=== PATIENT | male | born 1990 | race Two or more races ===

== ENCOUNTER 2024-10-23 21:08 | Emergency (ER) | payer MEDICAID, SELFPAY ==
[2024-10-23 21:08] VITALS: BMI 29.3
[2024-10-23 21:43] VITALS: BP 146/82; PULSE 107; RESP 20; TEMP 36.9; O2SAT 98
--- NOTE | 2024-10-23 22:03 | EDNOTE_ITS ---
ED General RME/HPI General Chief complaint: Dental/Oral/Throat Stated complaint: HEADACHE, BACK PAIN, SORE THROAT Time Seen by Provider: 10/23/24 21:46 Arrival date/time: 10/23/24 21:08 RME / HPI RME / HPI narrative: 34-year-old male presents to the ED with a complaint of headache, body aches, sore throat, chills, cough, and nausea only. All symptoms x 1 day. He denies runny nose, nasal congestion, sinus pressure, ear pain, vomiting, diarrhea or abdominal pain. No others are ill with similar symptoms. Related Data Previous Rx's ?Medication ?Instructions ?Recorded ibuprofen 800 mg tablet 800 mg PO TID PRN pain #30 t abs 09/25/22 hydrocodone 5 mg-acetaminophen 325 1 tab PO TID #12 ta bs 09/26/22 mg tablet ondansetron 4 mg disintegrating 4 mg PO Q8H PRN nausea and 08/02/23 tablet vomiting #15 tabs albuterol sulfate 90 mcg/actuation 2 puff inhalation Q 4H PRN 10/24/24 aerosol inhaler shortness of breath or wheez ing #8.5 grams amoxicillin 875 mg-potassium 1 tab PO BID #20 tabs 01/10 clavulanate 125 mg tablet meloxicam 15 mg tablet 15 mg PO QDAY #10 tabs 10/24 Allergies Allergy/AdvReac Type Severity Reaction Status Date / Time No Known Allergies Allergy Verified 09/28/22 18:55 Course Orders Category Date Time Status Bedside COVID-19 Antigen Test NOW Care 10/23/24 22:05 Active Bedside Influenza A&B Antigen Test NOW Care 10/23/24 22:06 Completed XR chest 2V Stat Exams 10/23/24 22:05 Completed Strep A Rapid Stat Lab 10/23/24 22:18 Completed Albuterol/Ipratr Rt Sindy [Duoneb Rt Sindy] Med 10/24/24 00:19 Discontinued 3 ml INH X1 ONE Amoxicillin/Pot Clav 875 [Augmentin 875] Med 10/24/24 01:19 Discontinued 1 tab PO X1 ONE Dexamethasone Inj [Decadron Inj] Med 10/24/24 00:19 Discontinued 10 mg PO X1 ONE Ibuprofen Tab [Motrin Tab] Med 10/23/24 22:41 Discontinued 600 mg PO X1 ONE Reevaluation(s) Reevaluation #1: Patient is feeling a little better however he is now complaining of sinus pressure. Vital Signs Vital signs: Vital Signs Temperature 98.4 F 10/23/24 21:43 Pulse Rate 107 H 10/23/24 21:43 Respiratory Rate 20 10/23/24 21:43 Blood Pressure 146/82 H 10/23/24 21:43 Pulse Oximetry (%) 98 10/23/24 21:43 Oxygen Delivery Method Room Air 10/23/24 21:43 Discharge Plan Plan Patient Disposition: HOME (Self Care) Discharge Disposition comment: Stable and improved Prescriptions/Referrals Prescriptions/Med Rec: New amoxicillin-pot clavulanate 875-125 mg tablet 1 tab PO BID Qty: 20 0RF albuterol sulfate 90 mcg/actuation HFA aerosol inhaler 2 puff inhalation Q4H PRN (Reason: shortness of breath or wheezing) Qty: 8.5 0RF meloxicam 15 mg tablet 15 mg PO QDAY Qty: 10 0RF No Action ibuprofen 800 mg tablet 800 mg PO TID PRN (Reason: pain) Qty: 30 0RF ondansetron 4 mg tablet,disintegrating 4 mg PO Q8H PRN (Reason: nausea and vomiting) Qty: 15 0RF hydrocodone-acetaminophen 5-325 mg tablet 1 tab PO TID MDD 3 Qty: 12 0RF Referrals: No Primary/Family,Physician [Primary Care Provider] - In 1 week Problem List Clinical Impression: Sinusitis Patient/Caregiver Discharge Instructions Education Materials: ED Sinusitis (Antibiotic Treatment) Additional Instructions: There is no evidence of strep throat, COVID, influenza, or pneumonia. It is likely your symptoms are caused by sinusitis. Take the antibiotics as prescribed and complete the course even though you may be feeling better. Follow-up with your primary care physician in 24 to 48 hours. Return to the ED for any new or worsening symptoms. 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 Supervising Physician: Dr Shelly BELLAMY Medication Administration(s) Medication Administration History Discontinued Medications Albuterol/Ipratropium (Albuterol/Ipratropium (Duoneb) Rt Sindy 3 Ml Nebu) 3 ml INH X1 ONE Stop: 10/24/24 00:20 Last Admin: 10/24/24 00:33 Dose: 3 ml Documented By: BRYANT Amoxicillin/Clavulanate Potassium (Amoxicillin/Pot Clav 875 Tablet) 1 tab PO X1 ONE Stop: 10/24/24 01:20 Last Admin: 10/24/24 01:28 Dose: 1 tab Documented By: TORREY Dexamethasone Sodium Phosphate (Dexamethasone Sod Phos Inj 10 Mg/Ml Vial) 10 mg PO X1 ONE Stop: 10/24/24 00:20 Last Admin: 10/24/24 00:41 Dose: Not Given Documented By: TORREY Non-Admin Reason: Other, see note Ibuprofen (Ibuprofen Tab 600 Mg Tablet) 600 mg PO X1 ONE Stop: 10/23/24 22:42 Last Admin: 10/23/24 23:11 Dose: 600 mg Documented By: TORREY
--- NOTE | 2024-10-23 22:05 | XR_ITS ---
Examination: PA lateral chest 2 views TECHNIQUE: Upright PA and lateral chest 2 views Date and time: October 23, 2024 2209 hours FINDINGS: Coughing today. FINDINGS: Normal heart size. Lungs are clear. Osseous structures are intact IMPRESSION: No active disease
[2024-10-23 23:05] LABS: Strep A Rapid Negative (Negative)
[2024-10-23] MEDS: IBUPROFEN TAB 600 MG TABLET PO (23:11)
[2024-10-24] MEDS: ALBUTEROL/IPRATROPIUM (Duoneb) RT SOL 3 ML NEBU INH (00:33)
[2024-10-24 00:37] VITALS: PULSE 88; RESP 18; O2SAT 96
[2024-10-24] MEDS: AMOXICILLIN/POT CLAV 875 TABLET 1 TAB PO (01:28)
== END 2024-10-24 05:29 | disposition home or self-care (01) ==
PROVIDERS: Physician Assistant; Emergency Provider Emergency Medicine
DX: J32.9 Chronic sinusitis, unspecified (principal); R05.9 Cough, unspecified
CPT/HCPCS: 71046; 87400; 87651; 87811; 94640; 99283; A9270